=== PATIENT | male | born 2000 | race Hispanic/Latino ===

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

== ENCOUNTER 2023-01-16 15:57 | Emergency (ER) | payer OTHER | END 2023-01-16 17:45 | disposition home or self-care (01) | LOC: ERS 15:57 | DX: S20.212A Contusion of left front wall of thorax, initial encounter (principal); W01.190A Fall on same level from slipping, tripping and stumbling with subsequent striking against furniture, initial encounter | CPT/HCPCS: 71045 ==